=== PATIENT | male | born 1945 | race Caucasian/White ===

== ENCOUNTER 2022-10-06 06:01 | Day surgery (SDC) | payer MEDICARE, BC ==
[~2022-10-06 06:01] MED LIST: Lactated Ringers 1,000 ML IV SCH; Lidocaine 1%/Sod Bicarbonate in NS 8.4% 1 ML Syringe IDERM PRN; Sodium Chloride 0.9% 10 ML Syringe FLUSH PRN; Sodium Chloride 0.9% 10 ML Syringe FLUSH SCH
[2022-10-06] MEDS ORDERED: Triamcinolone Acetonide 40 MG/ML 1 ML SDV ONE (06:27)
[2022-10-06] MEDS ORDERED: Bupivacaine 0.25% 10 ML SDV ONE (06:27)
[2022-10-06] MEDS ORDERED: Lidocaine 1% with EPINEPHrine 1:100,000 10 ML MDV ONE (06:30)
[2022-10-06] MEDS ORDERED: fentaNYL 100 MCG/2 ML SDV ONE (07:03)
[2022-10-06] MEDS ORDERED: Propofol 200 MG/20 ML SDV ONE (07:03)
[2022-10-06] MEDS ORDERED: Lidocaine 1% 6 ML ONE (07:07)
[2022-10-06 07:47] VITALS: PULSE 50
[2022-10-06 08:20] VITALS: BP 114/62
== END 2022-10-06 08:45 | disposition home or self-care (01) ==
LOC: JD.SDS 06:01
PROVIDERS: ATTEND Orthopaedic Surgery
DX: G56.01 Carpal tunnel syndrome, right upper limb (principal); M65.332 Trigger finger, left middle finger; M65.342 Trigger finger, left ring finger; M65.842 Other synovitis and tenosynovitis, left hand; M65.841 Other synovitis and tenosynovitis, right hand; G56.11 Other lesions of median nerve, right upper limb; I10 Essential (primary) hypertension; E11.9 Type 2 diabetes mellitus without complications; E66.01 Morbid (severe) obesity due to excess calories; G47.33 Obstructive sleep apnea (adult) (pediatric); M19.90 Unspecified osteoarthritis, unspecified site; G47.30 Sleep apnea, unspecified; E78.00 Pure hypercholesterolemia, unspecified; I25.10 Atherosclerotic heart disease of native coronary artery without angina pectoris; E03.9 Hypothyroidism, unspecified; Z68.41 Body mass index [BMI] 40.0-44.9, adult; Z88.5 Allergy status to narcotic agent; Z79.899 Other long term (current) drug therapy; Z79.82 Long term (current) use of aspirin; Z79.890 Hormone replacement therapy; Z98.890 Other specified postprocedural states
CPT/HCPCS: 20552; 64721; J2704; J3010; J3301; J3490; J7120; 01810

== ENCOUNTER 2023-10-12 05:45 | Day surgery (SDC) | payer MEDICARE, OTHER ==
[~2023-10-12 05:45] MED LIST changes: -Lidocaine 1%/Sod Bicarbonate in NS 8.4% 1 ML Syringe IDERM PRN
[2023-10-12] MEDS ORDERED: Bupivacaine 0.25% 10 ML SDV ONE (06:35)
[2023-10-12] MEDS ORDERED: Lidocaine 1% 10 ML MDV ONE (06:35)
[2023-10-12] MEDS ORDERED: Propofol 200 MG/20 ML SDV ONE (06:42)
[2023-10-12 08:46] VITALS: BP 145/83; PULSE 47
[2023-10-28] MEDS ORDERED: Sodium Chloride 0.9% 10 ML Syringe FLUSH SCH (00:01)
[2023-10-28] MEDS ORDERED: Sodium Chloride 0.9% 10 ML Syringe FLUSH PRN (00:01)
[2023-10-28] MEDS ORDERED: Lactated Ringers 1,000 ML IV SCH (00:01)
== END 2023-10-12 08:15 | disposition home or self-care (01) ==
LOC: JD.SDS 05:45
PROVIDERS: ATTEND Orthopaedic Surgery
DX: M65.9 Synovitis and tenosynovitis, unspecified (principal); M65.30 Trigger finger, unspecified finger; E11.9 Type 2 diabetes mellitus without complications; I10 Essential (primary) hypertension; I25.10 Atherosclerotic heart disease of native coronary artery without angina pectoris; E78.00 Pure hypercholesterolemia, unspecified; E03.9 Hypothyroidism, unspecified; E66.01 Morbid (severe) obesity due to excess calories; Z68.41 Body mass index [BMI] 40.0-44.9, adult; Z79.82 Long term (current) use of aspirin; Z79.890 Hormone replacement therapy; Z79.899 Other long term (current) drug therapy
CPT/HCPCS: 26055; J2704; J3490; J7120; 01810; 99100

== ENCOUNTER 2023-10-28 05:30 | Day surgery (SDC) | payer MEDICARE, OTHER ==
[2023-10-28] MEDS ORDERED: Sodium Chloride 0.9% 10 ML Syringe FLUSH PRN (06:13)
[2023-10-28] MEDS ORDERED: Lactated Ringers 1,000 ML IV SCH (06:15)
[2023-10-28] MEDS ORDERED: Lidocaine 1% 10 ML MDV ONE (06:20)
[2023-10-28] MEDS ORDERED: Bupivacaine 0.25% 10 ML SDV ONE (06:20)
[2023-10-28] MEDS ORDERED: Lidocaine 2% 5 ML SDV ONE (06:34)
[2023-10-28] MEDS ORDERED: fentaNYL 100 MCG/2 ML SDV ONE (06:35)
[2023-10-28] MEDS ORDERED: Propofol 200 MG/20 ML SDV ONE (06:35)
[2023-10-28] MEDS ORDERED: Ondansetron 4 MG/2 ML SDV IVPUSH PRN (07:17)
[2023-10-28] MEDS ORDERED: fentaNYL 100 MCG/2 ML SDV IVPUSH PRN (07:17)
[2023-10-28] MEDS ORDERED: HYDROmorphone 0.5 MG/0.5 ML Syringe IVPUSH PRN (07:17)
[2023-10-28 07:45] VITALS: BP 131/73; PULSE 56
[2023-10-28] MEDS ORDERED: Sodium Chloride 0.9% 10 ML Syringe FLUSH SCH (09:00)
== END 2023-10-28 07:25 | disposition home or self-care (01) ==
LOC: JD.SDS 05:30
PROVIDERS: ATTEND Orthopaedic Surgery
DX: M65.342 Trigger finger, left ring finger (principal); M65.332 Trigger finger, left middle finger; I10 Essential (primary) hypertension; E11.36 Type 2 diabetes mellitus with diabetic cataract; E78.5 Hyperlipidemia, unspecified; E03.9 Hypothyroidism, unspecified; E11.69 Type 2 diabetes mellitus with other specified complication; E66.01 Morbid (severe) obesity due to excess calories; Z72.0 Tobacco use; Z68.41 Body mass index [BMI] 40.0-44.9, adult; Z79.899 Other long term (current) drug therapy; Z79.890 Hormone replacement therapy
CPT/HCPCS: 26055; J2704; J3010; J3490; J7120